=== PATIENT | female | born 1995 | race African-American/Black ===

== ENCOUNTER 2016-08-05 17:20 | Emergency (ER) | payer OTHER ==
[2016-08-05] VITALS (10 sets, daily range): BP systolic 109–120; BP diastolic 60–71; PULSE 94–119; RESP 18; TEMP 97.8
[~2016-08-05 17:20] MED LIST: ZOFR4TAB3 SL
[2016-08-05 19:06] LABS: BACTERIA, URINE RARE /hpf; BLOOD, URINE NEG (NEG); COMMENT (UR) CULT NOT INDICATED; CULTURE IF INDICATED CULT NOT INDICATED; GLUCOSE,URINE NEG (NEG); HYALINE CAST, URINE 1 /lpf (RARE); KETONE, URINE NEG (NEG); MUCUS URINE FEW /lpf (OCC); NITRITE,URINE NEG (NEG); SQUAMOUS EPITHELIAL CELL URINE 10 /hpf (0-5); URINE COLOR YELLOW (YELLW/STRAW)
[2016-08-05] MEDS ORDERED: LACTATED RINGER'S 1000 ML INJ 1,000 ML IV SCH (19:12)
[2016-08-05] MEDS ORDERED: TERBUTALINE INJ 1 MG/ML AMP SQ PRN (19:15)
--- NOTE | 2016-08-05 19:47 | PD ---
HPI Chief Complaint Patient complains of dizziness high blood pressure and abdominal pain Date Seen: Aug 05, 2016 Travel History International Travel<30 Days: No Contact w/Intl Traveler<30Days: No Known Affected Area: No History of Present Illness HPI This patient is 20-year-old black female at [address] Blackburn who presents complaining of being busy at work of heart racing and her blood pressure was up 140/80 she called the office by told her to come to the OB ED. Her heart rate tracing is reactive she is kathy irregularly cx is closed, her blood pressures were all within normal limits Para: 0 : 2 History Past Medical History Narrative Medical Patient was recently treated for Trichomonas but her partner did not take the medication ,she did and now she may have a recurrent infection. Obstetric History Obstetric History 1 early loss Social History Alcohol Use: No Tobacco Use: No Substance Abuse: No Allergies-Medications (Allergen,Severity, Reaction): Coded Allergies: Amoxicillin (Verified Allergy, Severe, 05/28/14) Home Meds Active Scripts Ondansetron (Zofran ODT)4 Mg Tab4 Mg SL Q6 #20 TAB FOR NAUSEA/VOMITING Prov:Pascual Walker MD 05/24/14 Review of Systems General / Constitutional: No: Fever, Weight Gain, Chills, Other Eyes: No: Diploplia, Blurred Vision, Visual changes, Pain, Photophobia HENT: No: Headaches, Vertigo, Lightheadedness Cardiovascular: Irregular Rhythm, Chest Pain or Discomfort, Tachycardia, No: Palpitations, Syncope, Varicosities, Edema, Cyanosis Respiratory: Short of Breath, No: Cough, Other Gastrointestinal: Abdominal Pain, No: Nausea, Vomiting, Diarrhea Genitourinary: No: Decreased Urinary Output, Oliguria Musculoskeletal: No: Limited ROM, Weakness, Cramping, Edema, Pain Skin: No Rash, No Itching, No Dryness, No Lumps, No Change in Pigmentation, No Change in Nails, No Alopecia, No Lesions Neurologic: Weakness, Dizziness, No: Syncope, Focal Abnormalities, Coordination Problem, Headache, Slurred Speech, Seizures Psychiatric: No: Depression, Suicidal Ideations, Homicidal Ideation Endocrine: No: Heat Intolerance, Cold Intolerance, Polydipsia, Polyuria, Other Physical Exam Vital Signs Date Time Temp Pulse Resp B/P Pulse Ox O2 Delivery O2 Flow Rate FiO2 08/05/16 18:45 94 109/66 08/05/16 18:30 95 112/67 08/05/16 18:18 104 120/71 08/05/16 17:52 101 113/64 08/05/16 17:52 97.8 18 Narrative GENERAL: Well-nourished, well-developed patient. SKIN: Warm and dry. HEAD: Normocephalic and atraumatic. EYES: No scleral icterus. No injection or drainage. ENT: No nasal drainage noted. Mucous membranes pink. Airway patent. NECK: Supple, trachea midline. No JVD. CARDIOVASCULAR: Regular rate and rhythm without murmurs, gallops, or rubs. RESPIRATORY: Breath sounds equal bilaterally. No accessory muscle use. BREASTS: Bilateral exam showed no masses , no retractions, no nipple discharge. ABDOMEN/GI: Abdomen soft, non-tender, bowel sounds present, no rebound, no guarding Gravid to [-32] weeks size Fundal Height: [32-] GENITOURINARY: External Genitalia: intact and normal in appearance BUS glands: [-] Cervix: [Closed-] Dilatation: [Closed-] Effacement: [-] Thick Station: [-3] Membranes: [intact ] Uterine Contractions: [Irregular-] FHT's: Category: [1-] Baseline: [-133] Reactive: [-yes] Variability: [mod-] Decels: [none-] EXTREMITIES: No cyanosis or edema. BACK: Nontender without obvious deformity. No CVA tenderness. NEUROLOGICAL: Awake and alert. Motor and sensory grossly within normal limits. Five out of 5 muscle strength in all muscle groups. Normal speech. Data Data Orders Vital Signs (Adult) .ON ADMISSION (08/05/16 18:20) ^ Labor Status (08/05/16 18:20) Urinalysis - C+S If Indicated (08/05/16 18:20) Diet Liquid (08/05/16 Dinner) Vital Signs (Adult) .ON ADMISSION (08/05/16 19:12) ^ Labor Status (08/05/16 19:12) Lactated Ringer's 1000 Ml Inj (Lr 1000 M (08/05/16 19:12) Terbutaline Inj (Brethine Inj) (08/05/16 19:15) Fentanyl Inj (Fentanyl Inj) (08/05/16 19:15) Labs Laboratory Tests Test 08/05/16 17:40 Urine Color YELLOW Urine Turbidity HAZY Urine pH 6.0 Urine Specific [place] 1.019 Urine Protein TRACE Urine Glucose (UA) NEG Urine Ketones NEG Urine Occult Blood NEG Urine Nitrite NEG Urine Bilirubin NEG Urine Urobilinogen LESS THAN 2.0 Urine Leukocyte Esterase MOD Urine WBC 3 Urine Squamous Epithelial 10 Cells Urine Bacteria RARE Urine Hyaline Casts 1 Urine Mucus FEW Microscopic Urinalysis Comment CULT NOT INDICATED MDM Interpretation(s) Patient is a 20-year-old black female at 32 weeks who presented with dizziness high blood pressure contractions and cramps. Her on OB ED she was evaluated noted be kathy. Her blood pressures are within normal limits. Her dizziness was transient and not bothering her now, she was kathy given a liter of IV fluid shot of subcutaneous terbutaline and 25 g of fentanyl IV and this could also decrease in her contractions to essentially none , urinalysis is negative Plan Plan to the patient to increase oral fluid intake at home, use Tylenol liberally for discomfort, bedrest as much as possible, we will fill a prescription for Flagyl for her and her partner repeat treatment of 2 g bolus for both Diagnosis Diagnosis: Primary Impression: Uterine contractions during Additional Impression: Dizziness Disposition: 01 DISCHARGE HOME Condition: Stable Jagdish Mendez II, MD Aug 05, 2016 19:47
== END 2016-08-05 21:07 | disposition home or self-care (01) ==
LOC: HOBED 17:20
DX: O26.93 Pregnancy related conditions, unspecified, third trimester (principal); R10.9 Unspecified abdominal pain; R42 Dizziness and giddiness; I10 Essential (primary) hypertension; Z3A.32 32 weeks gestation of pregnancy
CPT/HCPCS: 81001; 96361; 96372; 96374; 99284; J3010; J3105; J7120

== ENCOUNTER 2016-08-07 13:08 | Emergency (ER) | payer OTHER ==
--- NOTE | 2016-08-07 13:55 | PD ---
HPI Chief Complaint Decreased movement and abdominal pain Date Seen: Aug 07, 2016 Travel History International Travel<30 Days: No Contact w/Intl Traveler<30Days: No Known Affected Area: No History of Present Illness HPI This patient is 20-year-old black female who is now at [address] Blackburn for care, who presents with decreased movement today and abdominal pain and cramps. Denies bleeding or leakage of fluid. Here on OB ED heart rate tracing is reactive with good variability. There are no contractions that are regular Para: 0 : 2 History Obstetric History Obstetric History 1 early loss Social History Alcohol Use: No Tobacco Use: No Substance Abuse: No Allergies-Medications (Allergen,Severity, Reaction): Coded Allergies: Amoxicillin (Verified Allergy, Severe, 05/28/14) Home Meds Active Scripts Ondansetron (Zofran ODT)4 Mg Tab4 Mg SL Q6 #20 TAB FOR NAUSEA/VOMITING Prov:Pascual Walker MD 05/24/14 Review of Systems General / Constitutional: No: Fever, Weight Gain, Chills, Other Eyes: No: Diploplia, Blurred Vision, Visual changes, Pain, Photophobia HENT: No: Headaches, Vertigo, Lightheadedness Cardiovascular: No: Irregular Rhythm, Chest Pain or Discomfort, Palpitations, Tachycardia, Syncope, Varicosities, Edema, Cyanosis Respiratory: No: Cough, Short of Breath, Other Gastrointestinal: Abdominal Pain, No: Nausea, Vomiting, Diarrhea Genitourinary: No: Decreased Urinary Output, Oliguria Musculoskeletal: No: Limited ROM, Weakness, Cramping, Edema, Pain Skin: No Rash, No Itching, No Dryness, No Lumps, No Change in Pigmentation, No Change in Nails, No Alopecia, No Lesions Neurologic: No: Weakness, Dizziness, Syncope, Focal Abnormalities, Coordination Problem, Headache, Slurred Speech, Seizures Psychiatric: No: Depression, Suicidal Ideations, Homicidal Ideation Endocrine: No: Heat Intolerance, Cold Intolerance, Polydipsia, Polyuria, Other Physical Exam Narrative GENERAL: Well-nourished, well-developed patient. SKIN: Warm and dry. HEAD: Normocephalic and atraumatic. EYES: No scleral icterus. No injection or drainage. ENT: No nasal drainage noted. Mucous membranes pink. Airway patent. NECK: Supple, trachea midline. No JVD. CARDIOVASCULAR: Regular rate and rhythm without murmurs, gallops, or rubs. RESPIRATORY: Breath sounds equal bilaterally. No accessory muscle use. BREASTS: Bilateral exam showed no masses , no retractions, no nipple discharge. ABDOMEN/GI: Abdomen soft, 1+-tender, bowel sounds present, no rebound, no guarding Gravid to [-33] weeks size Fundal Height: [33-] GENITOURINARY: External Genitalia: intact and normal in appearance BUS glands: [-] Cervix: [-Closed] Dilatation: [-] Closed Effacement: [-] Thick Station: [-3] Membranes: [intact ] Uterine Contractions: [-Only one seen on the monitor] FHT's: Category: [1-] Baseline: [-133] Reactive: [-yes] Variability: [mod-] Decels: [-none] EXTREMITIES: No cyanosis or edema. BACK: Nontender without obvious deformity. No CVA tenderness. NEUROLOGICAL: Awake and alert. Motor and sensory grossly within normal limits. Five out of 5 muscle strength in all muscle groups. Normal speech. MDM Interpretation(s) Patient is 20-year-old black female at 33 weeks presents complaining of decreased movement and abdominal pain today. Today heart rate tracing is reactive with good variability. There is only one contractions seen on the monitor. She was monitored for an adequate amount time still patient states that she's feeling the baby move now that she's been here, she is checked her cervix is closed and high today. Patient was given juice to drink here. She was monitored appropriately and should be able to be discharged home. Plan After monitoring with reactive strip active fetus she is able to be discharged home. Diagnosis Diagnosis: Primary Impression: Decreased movement affecting management of in third trimester Additional Impression: Abdominal pain complicating , antepartum Disposition: DISCHARGE HOME Condition: Stable Jagdish Mendez II, MD Aug 07, 2016 13:55
== END 2016-08-07 15:03 | disposition home or self-care (01) ==
LOC: HOBED 13:08
DX: O36.8130 Decreased fetal movements, third trimester, not applicable or unspecified (principal); R10.9 Unspecified abdominal pain; Z3A.33 33 weeks gestation of pregnancy
CPT/HCPCS: 99282

== ENCOUNTER 2017-05-21 13:38 | Emergency (ER) | payer OTHER ==
[~2017-05-21] VITALS: Ht 157.5 cm; Wt 53.0 kg
[2017-05-21 13:50] VITALS: BP 109/66; PULSE 115; RESP 20; TEMP 99.5; O2SAT 100
--- NOTE | 2017-05-21 14:01 | PD ---
HPI Chief Complaint: GI Complaint Time Seen by Provider: 13:58 Travel History International Travel<30 days: No Contact w/Intl Traveler<30days: No Traveled to known affect area: No History of Present Illness HPI Patient comes in complaining of generalized body aches, nausea vomiting diarrhea as well as dizziness since 1800 last night..... Worsened every time that she drinks or eats food. Patient denies any alleviating factors. Patient denies any associated factors such as headache/neck pain/rash/back pain/vaginal discharge/abdominal pain. States allergy to amoxicillin Patient denies any significant past medical or surgical history Patient has an implanted control device on her left inner arm [facility] Past Medical History Developmental Delay: No Immunizations Current: Yes ?: Not Social History Alcohol Use: No Tobacco Use: No Substance Use: No Allergies-Medications (Allergen,Severity, Reaction): Coded Allergies: amoxicillin (Unverified Allergy, Severe, 05/21/17) Reported Meds & Prescriptions Reported Meds & Active Scripts Active Review of Systems General / Constitutional: No: Fever Eyes: No: Visual changes HENT: No: Headaches Cardiovascular: No: Chest Pain or Discomfort Respiratory: No: Shortness of Breath Gastrointestinal: Positive: Nausea, Vomiting, Diarrhea Genitourinary: No: Dysuria Musculoskeletal: No: Pain Skin: No Rash Neurologic: No: Weakness Psychiatric: No: Depression Endocrine: No: Polydipsia Hematologic/Lymphatic: No: Easy Bruising Physical Exam Narrative GENERAL: SKIN: Warm and dry. HEAD: Atraumatic. Normocephalic. EYES: Pupils equal and round. No scleral icterus. No injection or drainage. ENT: No nasal bleeding or discharge. Mucous membranes pink and moist. NECK: Trachea midline. No JVD. CARDIOVASCULAR: Regular rate and rhythm. RESPIRATORY: No accessory muscle use. Clear to auscultation. Breath sounds equal bilaterally. GASTROINTESTINAL: Abdomen soft, non-tender, nondistended. MUSCULOSKELETAL: Extremities without clubbing, cyanosis, or edema. No obvious deformities. NEUROLOGICAL: Awake and alert. No obvious cranial nerve deficits. Motor grossly within normal limits. Five out of 5 muscle strength in the arms and legs. Normal speech. PSYCHIATRIC: Appropriate mood and affect; insight and judgment normal. Data Data Last Documented VS Vital Signs Date Time Temp Pulse Resp B/P (MAP) Pulse Ox O2 Delivery O2 Flow Rate FiO2 05/21/17 13:50 99.5 115 20 109/66 (80) 100 Orders Orders Complete Blood Count With Diff (05/21/17 14:08) Comprehensive Metabolic Panel (05/21/17 14:08) Lipase (05/21/17 14:08) Urinalysis - C+S If Indicated (05/21/17 14:08) Iv Access Insert/Monitor (05/21/17 14:08) Ecg Monitoring (05/21/17 14:08) NPO (05/21/17 14:08) Sodium Chlor 0.9% 1000 Ml Inj (Ns 1000 M (05/21/17 14:08) Sodium Chloride 0.9% Flush (Ns Flush) (05/21/17 14:15) Famotidine Inj (Pepcid Inj) (05/21/17 14:15) Ed Urine Pregnancytest Poc (05/21/17 14:08) Labs Laboratory Tests Test 05/21/17 14:35 White Blood Count 9.3 TH/MM3 Red Blood Count 4.41 MIL/MM3 Hemoglobin 12.7 GM/DL Hematocrit 38.0 % Mean Corpuscular Volume 86.3 FL Mean Corpuscular Hemoglobin 28.9 PG Mean Corpuscular Hemoglobin Concent 33.5 % Red Cell Distribution Width 12.8 % Platelet Count 248 TH/MM3 Mean Platelet Volume 8.3 FL Neutrophils (%) (Auto) 84.1 % Lymphocytes (%) (Auto) 8.6 % Monocytes (%) (Auto) 7.0 % Eosinophils (%) (Auto) 0.0 % Basophils (%) (Auto) 0.3 % Neutrophils # (Auto) 7.8 TH/MM3 Lymphocytes # (Auto) 0.8 TH/MM3 Monocytes # (Auto) 0.7 TH/MM3 Eosinophils # (Auto) 0.0 TH/MM3 Basophils # (Auto) 0.0 TH/MM3 CBC Comment DIFF FINAL Differential Comment Urine Color YELLOW Urine Turbidity CLEAR Urine pH 6.0 Urine Specific [place] 1.039 Urine Protein 30 mg/dL Urine Glucose (UA) NEG mg/dL Urine Ketones NEG mg/dL Urine Occult Blood NEG Urine Nitrite NEG Urine Bilirubin NEG Urine Urobilinogen LESS THAN 2.0 MG/DL Urine Leukocyte Esterase NEG Urine RBC 4 /hpf Urine WBC 3 /hpf Urine Squamous Epithelial Cells 3 /hpf Urine Transitional Epithelial Cells <1 /hpf Urine Bacteria RARE /hpf Urine Mucus FEW /lpf Microscopic Urinalysis Comment CULT NOT INDICATED Blood Urea Nitrogen 8 MG/DL Creatinine 0.80 MG/DL Random Glucose 91 MG/DL Total Protein 7.8 GM/DL Albumin 3.7 GM/DL Calcium Level 8.5 MG/DL Alkaline Phosphatase 83 U/L Aspartate Amino Transf (AST/SGOT) 15 U/L Alanine Aminotransferase (ALT/SGPT) 15 U/L Total Bilirubin 0.8 MG/DL Sodium Level 138 MEQ/L Potassium Level 3.6 MEQ/L Chloride Level 106 MEQ/L Carbon Dioxide Level 22.9 MEQ/L Anion Gap 9 MEQ/L Estimat Glomerular Filtration Rate 108 ML/MIN Lipase 97 U/L [facility] Medical Decision Making Medical Screen Exam Complete: Yes Emergency Medical Condition: Yes Medical Record Reviewed: Yes Differential Diagnosis Viral versus bacterial gastroenteritis versus hepatitis versus pancreatitis versus electrolyte imbalance versus urgency related Narrative Course CBC shows no leukocytosis, no anemia, normal platelet count, and minimal left shift of 84% neutrophilia Urinalysis is not consistent with a UTI Electrolytes are within normal limits, normal kidney liver and pancreatic functions. Diagnosis Primary Impression: Gastroenteritis Patient Instructions: Gastroenteritis (ED), General Instructions Scripts Tramadol (Ultram) 50 Mg Tab 50 MG PO Q8H Y for PAIN, #10 TAB 0 Refills Prov: Scott Angelo MD 05/21/17 Ondansetron Odt (Zofran Odt) 4 Mg Tab 4 MG SL Q8HR Y for Nausea/Vomiting, #20 TAB 0 Refills Prov: Scott Angelo MD 05/21/17 Disposition: 01 DISCHARGE HOME Condition: Stable Scott Angelo MD May 21, 2017 14:01
[2017-05-21] MEDS ORDERED: SODIUM CHLOR 0.9% 1000 ML INJ 1,000 ML IV SCH (14:08)
[2017-05-21] MEDS ORDERED: SODIUM CHLORIDE 0.9% FLUSH 10 ML FLUSH IV FLUSH PRN (14:15)
[2017-05-21] MEDS ORDERED: FAMOTIDINE 20 MG/2 ML VIAL IV PUSH ONE (14:15)
[2017-05-21 15:13] LABS: AUTOMATED NEUTROPHIL # 7.8 TH/MM3 (1.8-7.7); BASOPHIL % 0.3 % (0.0-2.0); HEMOGLOBIN 12.7 GM/DL (11.6-15.3); LYMPH % 8.6 % (9.0-44.0); LYMPHOCYTE # 0.8 TH/MM3 (1.0-4.8); MEAN CELL VOLUME 86.3 FL (80.0-100.0); MEAN CORPUSCULAR HEMOGLOBIN 28.9 PG (27.0-34.0); MEAN CORPUSCULAR HGB CONC 33.5 % (32.0-36.0); MEAN PLATELET VOLUME 8.3 FL (7.0-11.0); MONOCYTE # 0.7 TH/MM3 (0-0.9); NEUT % 84.1 % (16.0-70.0); PLATELET COUNT 248 TH/MM3 (150-450); RED BLOOD COUNT 4.41 MIL/MM3 (4.00-5.30); RED CELL DISTRIBUTION WIDTH 12.8 % (11.6-17.2); WHITE BLOOD COUNT 9.3 TH/MM3 (4.0-11.0)
[2017-05-21 15:21] LABS: BACTERIA, URINE RARE /hpf; BILIRUBIN, URINE NEG (NEG); BLOOD, URINE NEG (NEG); GLUCOSE,URINE NEG (NEG); KETONE, URINE NEG (NEG); MUCUS URINE FEW /lpf (OCC); NITRITE,URINE NEG (NEG); SQUAMOUS EPITHELIAL CELL URINE 3 /hpf (0-5); TRANSITIONAL EPI CELLS, URINE <1 /hpf; URINE COLOR YELLOW (YELLW/STRAW); URINE LEUKOCYTE ESTERASE NEG (NEG)
[2017-05-21 15:44] LABS: ALBUMIN 3.7 GM/DL (3.4-5.0); AST (GOT) 15 U/L (15-37); BICARBONATE 22.9 MEQ/L (21.0-32.0); BLOOD UREA NITROGEN 8 MG/DL (7-18); CALCIUM 8.5 MG/DL (8.5-10.1); CHLORIDE 106 MEQ/L (98-107); GLOMERULAR FILTRATION RATE 108 ML/MIN (>89); GLUCOSE,RANDOM 91 MG/DL (74-106); SODIUM (NA) 138 MEQ/L (136-145)
[2017-05-21 15:46] LABS: ALKALINE PHOSPHATASE 83 U/L (45-117); ALT (GPT) 15 U/L (10-53); TOTAL BILIRUBIN ADULT 0.8 MG/DL (0.2-1.0); TOTAL PROTEIN 7.8 GM/DL (6.4-8.2)
[2017-05-21] MEDS ORDERED: TRAM50 PO (15:59)
[2017-05-21] MEDS ORDERED: ZOFR4TAB3 SL (15:59)
== END 2017-05-21 16:15 | disposition home or self-care (01) ==
LOC: NEPC 13:38
DX: K52.9 Noninfective gastroenteritis and colitis, unspecified (principal)
CPT/HCPCS: 80053; 81001; 83690; 84703; 85025; 96361; 96374; 99284; J7030